=== PATIENT | female | born 1950 | race Caucasian/White ===

== ENCOUNTER → 2016-10-09 | Outpatient (CLI) | payer OTHER ==
[~2016-10-09] MED LIST: ATIVAN1 MG PO; CYCLOBENZAPRINE10 MG PO; FLEXERIL5 MG PO; HYDROCODONE BIT1 T11 PO; Motrin,Rufen800 MG PO; PERCOCET 325 MG1 TA2 PO; PREDNISONE20 MG PO; ROBAXIN500 MG PO; VICODIN 5/500 505 MG PO
== END | disposition home or self-care (01) ==
LOC: MAMMO 09:09
DX: R92.1 Mammographic calcification found on diagnostic imaging of breast (principal); Z85.3 Personal history of malignant neoplasm of breast

== ENCOUNTER → 2017-01-15 | Outpatient (CLI) | payer OTHER ==
[2017-01-15 10:30] LABS: ALBUMIN 3.7 gm/dl (3.1-4.5); BUN 16 mg/dl (7-24); CHLORIDE 104 mmol/L (98-107); CREATININE 0.71 mg/dL (0.55-1.02); PHOSPHOROUS 2.4 mg/dL (2.5-4.9); POTASSIUM 4.7 mmol/L (3.5-5.1); SODIUM 138 mmol/L (136-145)
== END | disposition home or self-care (01) ==
LOC: LAB 09:45
PROVIDERS: Internal Medicine
DX: E11.65 Type 2 diabetes mellitus with hyperglycemia (principal); D51.9 Vitamin B12 deficiency anemia, unspecified

== ENCOUNTER 2018-03-22 03:13 | Inpatient (IN) | payer OTHER ==
[2018-03-22 03:20] VITALS: BP 130/67
[2018-03-22 04:40] VITALS: BP 152/70
--- NOTE | 2018-03-22 04:40 | NUR ---
Time: 439 A 67 year old F admitted to 5E under services of HENRY JON DO. Pt. arrived via bed from ER. Chief complaint: FALL INJURING LEFT ANKLE/FOOT. JONATHAN GAYLE
[2018-03-22] MEDS ORDERED: HUMALOG MI100 UNIT/1 SC (04:56)
[2018-03-22] MEDS ORDERED: HUMALOG100 UNIT/1 SQ (04:57)
[2018-03-22 06:15] LABS: BASO % 0.4 % (0.0-1.0); EOS # 0.1 10*3/uL (0.0-0.4); EOS % 0.5 % (1.0-4.0); HEMATOCRIT 42.9 % (37.0-47.0); HEMOGLOBIN 13.9 g/dl (12.0-16.0); LYMPH # 3.3 10*3/uL (1.3-4.4); LYMPH % 33.9 % (27.0-41.0); MEAN CELL VOLUME 89.2 fl (81.0-99.0); MEAN CORPUSCULAR HGB 28.9 pg (27.0-31.0); MEAN CORPUSCULAR HGB CONC 32.4 g/dl (33.0-37.0); MEAN PLATELET VOLUME 9.1 fl (9.6-12.3); MONO # 0.6 10*3/uL (0.1-1.0); MONO % 5.8 % (3.0-9.0); NEUT # 5.7 10*3/uL (2.3-7.9); NEUT % 59.1 % (47.0-73.0); PLATELET COUNT AUTOMATED 336 10*3/uL (130-400); RED BLOOD COUNT 4.81 10*6/uL (4.10-5.10); RED CELL DISTRI WIDTH 12.2 % (0-14.5); WHITE BLOOD COUNT 9.7 10*3/uL (4.8-10.8)
--- NOTE | 2018-03-22 06:22 | NUR ---
MEDICATED WITH NORCO PER PRN ORDER FOR COMPLAINTS OF LEFT FOOT/ANKLE PAIN RATING A 6. CALL LIGHT WITHIN REACH. WILL MONITOR FOR EFFECTIVENESS
[2018-03-22 06:45] LABS: ACT PARTIAL THROMBO TIME 25.9 SECONDS (20.8-31.5); INTERNATIONAL NORM RATIO 0.9 (2.0-3.5)
[2018-03-22 06:45] LABS: ALBUMIN 3.5 gm/dl (3.1-4.5); ALKALINE PHOSPHATASE 95 U/L (45-117); BUN 18 mg/dl (7-24); CHLORIDE 104 mmol/L (98-107); CHOLESTEROL 197 mg/dL (<200); CREATININE 0.72 mg/dL (0.55-1.02); FREE T4 1.03 ng/dl (0.76-1.46); HDL CHOLESTEROL 44 mg/dl (40-60); LDL CHOLESTEROL 132 mg/dL (9-159); PHOSPHOROUS 3.7 mg/dL (2.5-4.9); POTASSIUM 4.3 mmol/L (3.5-5.1); SGOT/AST 11 IU/L (3-35); SGPT/ALT 17 U/L (12-78); SODIUM 140 mmol/L (136-145); TOTAL PROTEIN 7.5 gm/dL (6.4-8.2); TRIGLYCERIDES 106 mg/dl (<150); VLDL CHOLESTEROL 21 mg/dL (6-40)
[2018-03-22 07:46] LABS: VITAMIN D, 25-HYDROXY 14.4 ng/mL (30-100)
[2018-03-22 08:00] VITALS: BP 122/60
--- NOTE | 2018-03-22 09:15 | NUR ---
PT RESTING IN BED WITH VISITOR AT HER SIDE. DR RG IN TO SEE PT. PT BEING DISCHARGED. C/O LEFT LEG PAIN, RATES PAIN 8 ON PAIN SCALE 0-10. MEDICATED WITH NORCO PO PER PRNO RDER, SEE EMAR. CALL LIGHT IN REACH. SEE SHIFT ASSESSMNET.
[2018-03-22] MEDS ORDERED: NORCO 5-325 TA1 EACH PO (09:17)
--- NOTE | 2018-03-22 09:32 | NUR ---
PT ESCORTED VIA WHEELCHAIR FOR DISCHARGE. Discharge instructions reviewed with patient/family. Patient receptive and verbalizes understanding. Follow-up care arranged. Written instructions given to patient/family. HEPLOCK REMOVED 2X2 APPLIED. DAUGHTER AT HER SIDE. JANAK LIZARRAGA
== END 2018-03-22 09:32 | disposition home or self-care (01) | DRG 556 ==
LOC: ED 03:13 → EDHOLD 04:06 → 5E 04:20
PROVIDERS: Family Medicine; ADMIT Internal Medicine
DX: M79.605 Pain in left leg (principal); R26.2 Difficulty in walking, not elsewhere classified; W19.XXXA Unspecified fall, initial encounter; E55.9 Vitamin D deficiency, unspecified; M81.0 Age-related osteoporosis without current pathological fracture; E11.65 Type 2 diabetes mellitus with hyperglycemia; Z90.710 Acquired absence of both cervix and uterus; Z82.49 Family history of ischemic heart disease and other diseases of the circulatory system; Z86.73 Personal history of transient ischemic attack (TIA), and cerebral infarction without residual deficits; Z88.0 Allergy status to penicillin; Z90.49 Acquired absence of other specified parts of digestive tract; Z88.2 Allergy status to sulfonamides; Z79.1 Long term (current) use of non-steroidal anti-inflammatories (NSAID); Z79.4 Long term (current) use of insulin; Z79.899 Other long term (current) drug therapy; Y93.89 Activity, other specified; Y92.89 Other specified places as the place of occurrence of the external cause; Y99.8 Other external cause status

== ENCOUNTER 2018-10-21 13:02 | Emergency (ER) | payer OTHER ==
[~2018-10-21] VITALS: Ht 165.1 cm; Wt 69.9 kg
[~2018-10-21 13:02] MED LIST changes: +HUMALOG MI100 UNIT/1 SC; +HUMALOG100 UNIT/1 SQ; +NORCO 5-325 TA1 EACH PO
[2018-10-21 13:04] VITALS: BP 144/80
== END 2018-10-21 14:25 | disposition home or self-care (01) ==
LOC: ED 13:02
DX: M25.561 Pain in right knee (principal); E11.9 Type 2 diabetes mellitus without complications; M81.0 Age-related osteoporosis without current pathological fracture; Z85.3 Personal history of malignant neoplasm of breast; Z88.0 Allergy status to penicillin; Z88.2 Allergy status to sulfonamides; Z79.4 Long term (current) use of insulin; Z79.899 Other long term (current) drug therapy; Z90.710 Acquired absence of both cervix and uterus; Z90.49 Acquired absence of other specified parts of digestive tract; W18.49XA Other slipping, tripping and stumbling without falling, initial encounter; Y93.K1 Activity, walking an animal; Y92.89 Other specified places as the place of occurrence of the external cause; Y99.8 Other external cause status

== ENCOUNTER → 2019-03-18 | Outpatient (CLI) | payer OTHER | END | disposition home or self-care (01) | LOC: MAMMO 13:32 | DX: C50.912 Malignant neoplasm of unspecified site of left female breast (principal); N64.9 Disorder of breast, unspecified ==

== ENCOUNTER 2019-11-19 13:46 | Emergency (ER) | payer OTHER ==
[~2019-11-19] VITALS: Ht 165.1 cm; Wt 70.3 kg
[2019-11-19 13:59] VITALS: BP 145/66
== END 2019-11-19 15:29 | disposition home or self-care (01) ==
LOC: ED 13:46
DX: S90.122A Contusion of left lesser toe(s) without damage to nail, initial encounter (principal); F41.9 Anxiety disorder, unspecified; E11.9 Type 2 diabetes mellitus without complications; Z88.0 Allergy status to penicillin; Z88.2 Allergy status to sulfonamides; Z79.899 Other long term (current) drug therapy; Z79.4 Long term (current) use of insulin; Z90.49 Acquired absence of other specified parts of digestive tract; X58.XXXA Exposure to other specified factors, initial encounter; Y93.89 Activity, other specified; Y92.89 Other specified places as the place of occurrence of the external cause; Y99.8 Other external cause status

== ENCOUNTER → 2021-02-03 | Outpatient (CLI) | payer OTHER | END | disposition home or self-care (01) | LOC: MAMMO 02-02 10:00 | PROVIDERS: ATTEND Internal Medicine | DX: Z12.31 Encounter for screening mammogram for malignant neoplasm of breast (principal); Z85.3 Personal history of malignant neoplasm of breast ==

== ENCOUNTER 2021-10-21 11:59 | Emergency (ER) | payer OTHER ==
[~2021-10-21] VITALS: Ht 165.1 cm; Wt 77.1 kg
[2021-10-21 12:13] VITALS: BP 150/72
[2021-10-21] MEDS ORDERED: CELEXA10 MG PO (12:29)
[2021-10-21 12:47] LABS: BASO % 0.3 % (0.0-1.0); EOS % 0.3 % (1.0-4.0); HEMATOCRIT 38.2 % (37.0-47.0); LYMPH % 37.3 % (27.0-41.0); MEAN CELL VOLUME 87.4 fl (81.0-99.0); MEAN CORPUSCULAR HGB 29.1 pg (27.0-31.0); MEAN CORPUSCULAR HGB CONC 33.2 g/dl (33.0-37.0); MEAN PLATELET VOLUME 8.6 fl (9.6-12.3); MONO # 0.6 10*3/uL (0.1-1.0); MONO % 7.4 % (3.0-9.0); NEUT # 4.3 10*3/uL (2.3-7.9); NEUT % 53.9 % (47.0-73.0); PLATELET COUNT AUTOMATED 308 10*3/uL (130-400); RED BLOOD COUNT 4.37 10*6/uL (4.10-5.10); RED CELL DISTRI WIDTH 12.7 % (0-14.5)
[2021-10-21 13:08] LABS: ALKALINE PHOSPHATASE 96 U/L (45-117); BUN 16 mg/dl (7-24); CHLORIDE 103 mmol/L (98-107); CREATININE 0.85 mg/dL (0.55-1.02); POTASSIUM 3.9 mmol/L (3.5-5.1); SGOT/AST 36 IU/L (3-35); SGPT/ALT 43 U/L (12-78); SODIUM 137 mmol/L (136-145); TOTAL PROTEIN 7.6 gm/dL (6.4-8.2)
== END 2021-10-21 14:10 | disposition home or self-care (01) ==
LOC: ED 11:59
PROVIDERS: Nurse Practitioner Family
DX: U07.1 COVID-19 (principal); Z88.0 Allergy status to penicillin; Z88.2 Allergy status to sulfonamides; Z79.4 Long term (current) use of insulin; Z79.899 Other long term (current) drug therapy; Z90.49 Acquired absence of other specified parts of digestive tract; Z90.710 Acquired absence of both cervix and uterus

== ENCOUNTER 2022-01-27 18:17 | Emergency (ER) | payer OTHER ==
[~2022-01-27] VITALS: Ht 165.1 cm; Wt 70.3 kg
[~2022-01-27 18:17] MED LIST changes: +CELEXA10 MG PO
[2022-01-27 19:05] VITALS: BP 172/70
[2022-01-27] MEDS ORDERED: HYDROCODONE-AC1 EAC1 PO (20:57)
== END 2022-01-27 21:03 | disposition home or self-care (01) ==
LOC: ED 18:17
DX: S52.502A Unspecified fracture of the lower end of left radius, initial encounter for closed fracture (principal); Z88.0 Allergy status to penicillin; Z88.2 Allergy status to sulfonamides; Z90.710 Acquired absence of both cervix and uterus; Z90.49 Acquired absence of other specified parts of digestive tract; Z98.890 Other specified postprocedural states; W01.0XXA Fall on same level from slipping, tripping and stumbling without subsequent striking against object, initial encounter; Y93.89 Activity, other specified; Y92.89 Other specified places as the place of occurrence of the external cause; Y99.8 Other external cause status

== ENCOUNTER → 2022-11-21 | Outpatient (CLI) | payer OTHER ==
[~2022-11-21] MED LIST changes: +HYDROCODONE-AC1 EAC1 PO
[2022-11-21 10:41] LABS: BASO % 0.4 % (0.0-1.0); EOS # 0.1 10*3/uL (0.0-0.4); EOS % 0.7 % (1.0-4.0); HEMATOCRIT 40.7 % (37.0-47.0); LYMPH # 2.9 10*3/uL (1.3-4.4); LYMPH % 37.1 % (27.0-41.0); MEAN CELL VOLUME 88.5 fl (81.0-99.0); MEAN CORPUSCULAR HGB 28.9 pg (27.0-31.0); MEAN CORPUSCULAR HGB CONC 32.7 g/dl (33.0-37.0); MEAN PLATELET VOLUME 8.3 fl (9.6-12.3); MONO # 0.5 10*3/uL (0.1-1.0); MONO % 6.4 % (3.0-9.0); NEUT # 4.2 10*3/uL (2.3-7.9); NEUT % 54.9 % (47.0-73.0); PLATELET COUNT AUTOMATED 360 10*3/uL (130-400); RED CELL DISTRI WIDTH 12.9 % (0-14.5); WHITE BLOOD COUNT 7.7 10*3/uL (4.8-10.8)
[2022-11-21 11:17] LABS: ALKALINE PHOSPHATASE 116 U/L (46-116); BUN 13 mg/dl (9-23); CHLORIDE 105 mmol/L (98-107); CHOLESTEROL 229 mg/dL (<200); LDL CHOLESTEROL 158 mg/dL (9-159); POTASSIUM 4.5 mmol/L (3.4-5.1); SGPT/ALT 19 U/L (10-49); TOTAL PROTEIN 7.7 gm/dL (6.0-8.0); TRIGLYCERIDES 142 mg/dl (<150)
== END | disposition home or self-care (01) ==
LOC: LAB 10:19
PROVIDERS: ATTEND Nurse Practitioner Primary Care
DX: E11.69 Type 2 diabetes mellitus with other specified complication (principal); E78.2 Mixed hyperlipidemia; E55.9 Vitamin D deficiency, unspecified

== ENCOUNTER → 2023-01-03 | Outpatient (CLI) | payer OTHER | END | disposition home or self-care (01) | LOC: MAMMO 12:56 | PROVIDERS: ATTEND Nurse Practitioner Women's Health | DX: C50.912 Malignant neoplasm of unspecified site of left female breast (principal); Z85.3 Personal history of malignant neoplasm of breast; Z90.12 Acquired absence of left breast and nipple ==

== ENCOUNTER → 2023-01-05 | Outpatient (CLI) | payer OTHER | END | disposition home or self-care (01) | LOC: RAD 00:46 | PROVIDERS: ATTEND Nurse Practitioner Primary Care | DX: M81.0 Age-related osteoporosis without current pathological fracture (principal); Z78.0 Asymptomatic menopausal state ==

== ENCOUNTER → 2023-07-12 | Outpatient (CLI) | payer OTHER ==
[2023-07-12 10:23] LABS: BASO % 0.4 % (0.0-1.0); EOS # 0.1 10*3/uL (0.0-0.4); EOS % 1.1 % (1.0-4.0); HEMATOCRIT 39.6 % (37.0-47.0); LYMPH # 3.4 10*3/uL (1.3-4.4); LYMPH % 34.7 % (27.0-41.0); MEAN CELL VOLUME 91.7 fl (81.0-99.0); MEAN CORPUSCULAR HGB 28.9 pg (27.0-31.0); MEAN CORPUSCULAR HGB CONC 31.6 g/dl (33.0-37.0); MEAN PLATELET VOLUME 8.6 fl (9.6-12.3); MONO # 0.6 10*3/uL (0.1-1.0); MONO % 5.8 % (3.0-9.0); NEUT # 5.7 10*3/uL (2.3-7.9); NEUT % 57.6 % (47.0-73.0); PLATELET COUNT AUTOMATED 354 10*3/uL (130-400); RED BLOOD COUNT 4.32 10*6/uL (4.10-5.10); RED CELL DISTRI WIDTH 12.9 % (0-14.5); WHITE BLOOD COUNT 9.9 10*3/uL (4.8-10.8)
[2023-07-12 10:49] LABS: ALKALINE PHOSPHATASE 78 U/L (46-116); BUN 13 mg/dl (9-23); CHLORIDE 105 mmol/L (98-107); CHOLESTEROL 157 mg/dL (<200); LDL CHOLESTEROL 89 mg/dL (9-159); POTASSIUM 4.4 mmol/L (3.4-5.1); SGPT/ALT 14 U/L (5-49); TOTAL PROTEIN 7.6 gm/dL (6.0-8.0); TRIGLYCERIDES 114 mg/dl (<150)
== END | disposition home or self-care (01) ==
LOC: LAB 10:04
PROVIDERS: ATTEND Nurse Practitioner Primary Care
DX: I10 Essential (primary) hypertension (principal); R06.02 Shortness of breath